=== PATIENT | male | born 1960 | race Caucasian/White ===

== ENCOUNTER 2017-09-26 20:09 | Emergency (ER) | payer OTHER ==
[~2017-09-26] VITALS: Ht 165.1 cm; Wt 86.2 kg
[2017-09-26 20:10] VITALS: Ht 165.1 cm; Wt 86.2 kg
[2017-09-26 22:58] VITALS: BP 124/69
== END 2017-09-26 22:58 | disposition home or self-care (01) ==
LOC: ED 20:09
DX: L23.7 Allergic contact dermatitis due to plants, except food (principal); I10 Essential (primary) hypertension; E11.9 Type 2 diabetes mellitus without complications
CPT/HCPCS: J1200; J2930; J3490; J7030; J7613

== ENCOUNTER 2018-08-24 14:05 | Emergency (ER) | payer OTHER ==
[~2018-08-24] VITALS: Ht 162.6 cm; Wt 102.1 kg
[2018-08-24 14:28] VITALS: BP 126/78; Ht 162.6 cm; Wt 102.1 kg
== END 2018-08-24 17:48 | disposition home or self-care (01) ==
LOC: ED 14:05
DX: H33.8 Other retinal detachments (principal); I10 Essential (primary) hypertension; E11.9 Type 2 diabetes mellitus without complications; E78.00 Pure hypercholesterolemia, unspecified; Z98.890 Other specified postprocedural states